=== PATIENT | female | born 1980 | race African-American/Black ===

== ENCOUNTER 2016-09-05 17:02 | Emergency (ER) | payer OTHER ==
[2016-09-05 17:08] VITALS: BP 126/55; PULSE 77; TEMP 98.6; BMI 31.6
--- NOTE | 2016-09-05 17:40 | PDOC ---
History of Present Illness - History of Present Illness Initial Comments: 09/05/16 17:40 The patient is a 36 year old female, with a past medical history miscarriage , who presents to the emergency department with progressive pain to her left hip s/p slipping on oil two days ago. She denies falling when she slipped , however, does reports a mechanical fall 1 month ago where she fell to her knees. She denies hip pain a month ago. She reports her left hip pain as a stabbing and burning to the lateral aspect with radiation anteriorly. She reports the pain has progressed in severity since the slip no fall on Thursday. She reports the pain is exacerbated with weightbearing and stretching. She states she has been walking with a limp secondary to pain. She reports icing the left hip and taking 600mg Motrin today with minimal relief of pain. She states she wears heels and wedges at work when meeting clients, but changes into sneakers when she can. She denies chest pain, shortness of breath, headache and dizziness. She denies fever, chills, nausea, vomit, diarrhea and constipation. She denies dysuria, frequency, urgency and hematuria. 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 <Domitila Justice - Last Filed: 09/05/16 17:42> - General History Source: Patient Exam Limitations: No Limitations - History of Present Illness Initial Comments: 09/05/16 17:39 <Bertha Johnson - Last Filed: 09/05/16 18:36> - General Chief Complaint: Pain Stated Complaint: HIP PAIN Time Seen by Provider: 09/05/16 17:19 Past History <Domitila Justice - Last Filed: 09/05/16 17:42> - Surgical History Abdominal Surgery: Yes (sleeve gastrectomy,tummy tuck) - Psycho/Social/Smoking Cessation Hx Suicidal Ideation: No Smoking History: Never smoked Information on smoking cessation initiated: No Hx Alcohol Use: No Drug/Substance Use Hx: No Substance Use Type: None <Bertha Johnson - Last Filed: 09/05/16 18:36> - Past Medical History Allergies/Adverse Reactions: Allergies Allergy/AdvReac Type Severity Reaction Status Date / Time No Known Allergies Allergy Verified 09/05/16 17:08 Home Medications: Ambulatory Orders Naproxen [Naprosyn -] 500 mg PO BID #30 tablet 09/05/16 Review of Systems - Review of Systems Able to Perform ROS?: Yes Comments:: 09/05/16 17:40 CONSTITUTIONAL: Absent: fever, no chills, no fatigue EYES: Absent: visual changes ENT: Absent: ear pain, no sore throat CARDIOVASCULAR: Absent: chest pain, no palpitations RESPIRATORY: Absent: cough, no SOB GI: Absent: abdominal pain, no nausea, no vomiting, no constipation, no diarrhea GENITOURINARY: Absent: dysuria, no frequency, no hematuria MUSCULOSKELETAL: (+) left hip pain. Absent: back pain, SKIN: Absent: rash NEURO: Absent: headache <Domitila Justice - Last Filed: 09/05/16 17:42> *Physical Exam - Vital Signs Last Vital Signs Temp Pulse Resp BP Pulse Ox 98.6 F 77 18 126/55 99 09/05/16 17:06 09/05/16 17:06 09/05/16 17:06 09/05/16 17:06 09/05/16 17:06 - Physical Exam Comments: 09/05/16 17:40 GENERAL: Well-appearing, well-nourished. No apparent distress. HEENT: Normocephalic, atraumatic. PERRL, EOM intact. CARDIOVASCULAR: Normal S1, S2. Regular rate and rhythm. PULMONARY: Clear to auscultation bilaterally. ABDOMEN: Soft, non-distended, non-tender. EXTREMITIES: (+) slightly antalgic gait. Normal ROM in all four extremities. No gross bony deformities. SKIN: Warm, dry. No rash. No ecchymosis. NEUROLOGICAL: No focal neurological deficits. <Domitila Justice - Last Filed: 09/05/16 17:42> - Vital Signs Last Vital Signs Temp Pulse Resp BP Pulse Ox 98.6 F 77 18 126/55 99 09/05/16 17:06 09/05/16 17:06 09/05/16 17:06 09/05/16 17:06 09/05/16 17:06 <Bertha Johnson - Last Filed: 09/05/16 18:36> *DC/Admit/Observation/Transfer - Attestations Scribe Attestion: 09/05/16 17:41 Documentation prepared by Domitila Justice, acting as chief medical director for Bertha Johnson NP <Domitila Justice - Last Filed: 09/05/16 17:42> - Discharge Dispostion Admit: No <Bertha Johnson - Last Filed: 09/05/16 18:36> Diagnosis at time of Disposition: Trochanteric bursitis of left hip - Discharge Dispostion Disposition: HOME Condition at time of disposition: Stable - Referrals Referrals: Josue Fallon MD [Primary Care Provider] - Anil Polanco MD [Staff Physician] - - Patient Instructions Printed Discharge Instructions: DI for Hip Bursitis Additional Instructions: Rest, ice to area on and off for 15 minutes 4-6 times a day Avoid heavy lifting or exercise until pain and swelling is resolved or until further directed Keep area highly elevated to reduce swelling Use splints/Edmar wrap as directed Followup with orthopedist in one to 2 days if not improving, if significantly improved may wait one week for followup with orthopedist May use Naprosyn 500 mg tablets mg tablets every 8 hours as needed for pain - Post Discharge Activity Work/School Note: Back to Work
[2016-09-05] MEDS ORDERED: KETOROLAC TROMETHAMINE 60 MG/2 ML VIAL IM ONE (18:00)
[2016-09-05] MEDS ORDERED: KETOROLAC TROMETHAMINE 60 MG/2 ML VIAL ONE (18:26)
== END 2016-09-05 18:46 | disposition home or self-care (01) ==
LOC: JERFT 17:02
PROC: 3E0233Z Introduction of Anti-inflammatory into Muscle, Percutaneous Approach (ICD-10-PCS; principal; 2016-09-05)
DX: M70.62 Trochanteric bursitis, left hip (principal); W01.0XXA Fall on same level from slipping, tripping and stumbling without subsequent striking against object, initial encounter; Y93.89 Activity, other specified; Y92.9 Unspecified place or not applicable
CPT/HCPCS: 84703; 96372; 99281-25

== ENCOUNTER 2017-12-04 21:44 | Emergency (ER) | payer BC, OTHER ==
[2017-12-04 21:49] VITALS: BP 130/89; PULSE 76; TEMP 98.8; BMI 31.4
[2017-12-04] MEDS ORDERED: IBUPROFEN 400 MG TABLET (FP) PO ONE ×2 (23:26→23:48)
[2017-12-04] MEDS ORDERED: DIPHTH,PERTUSS(ACELL),TET 0.5 ML DISP.SYRIN IM ONE (23:26)
--- NOTE | 2017-12-04 23:35 | PDOC ---
History of Present Illness - General Chief Complaint: Injury Stated Complaint: FINGER INJURY Time Seen by Provider: 12/04/17 23:02 - History of Present Illness Initial Comments: 12/04/17 23:26 CHIEF COMPLAINT: finger injury HISTORY OF PRESENT ILLNESS: 37 yo F with no significant PMH presents to ED with R fifth finger injury. Patient states she was at work today when she caught her finger "in a bar door" and it started bleeding. Since then she has been bleeding continuously and her finger is now bruised and swollen. She believes her last tetanus shot was in 2001. No recent travel or sick contacts. PAST MEDICAL HISTORY: Denies past medical history FAMILY HISTORY: Denies SOCIAL HISTORY:Denies tobacco, alcohol, illicit drug use. SURGICAL HISTORY: Denies ALLERGIES: No known drug allergies REVIEW OF SYSTEMS General/Constitutional: Denies fever or chills. Denies weakness, weight change. HEENT: Denies change in vision. Denies ear pain or discharge. Denies sore throat. Cardiovascular: Denies chest pain or shortness of breath. Respiratory: Denies cough, wheezing, or hemoptysis. Gastrointestinal: Denies nausea, vomiting, diarrhea or constipation. Denies rectal bleeding. Genitourinary: Denies dysuria, frequency, or change in urination. Musculoskeletal: Crush injury to R pinky finger. Denies joint or muscle swelling or pain. Denies neck or back pain. Skin and breasts: Denies rash or easy bruising. Neurologic: Denies headache, vertigo, loss of consciousness, or loss of sensation. PHYSICAL EXAM General Appearance: Well-appearing, appropriately dressed. No apparent distress. HEENT: EOMI, PERRLA, normal ENT inspection, normal voice, TMs normal, pharynx normal. No conjunctival pallor. No photophobia, scleral icterus. Neck: Supple. Trachea midline. No tenderness, rigidity, carotid bruit, stridor , lymphadenopathy, or thyromegaly. Respiratory/Chest: Lungs CTAB. No shortness of breath, chest tenderness, respiratory distress, accessory muscle use. No crackles, rales, rhonchi, stridor , wheezing, dullness Cardiovascular: RRR. S1, S2. No JVD, murmur, bradycardia, tachycardia. Vascular Pulses: Dorsalis-Pedis (R): 2+, Dorsalis-Pedis (L): 2+ Gastrointestinal/Abdominal: Normal bowel sounds. Abdomen soft, non-distended. No tenderness or rebound tenderness. No organomegaly, pulsatile mass, guarding , hernia, hepatomegaly, splenomegaly. Lymphatic: No adenopathy, tenderness. Musculoskeletal/Extremities: Ecchymosis and bleeding to distal R 5th finger with tenderness on palpation and pain elicited with active and passive ROM. Pelvis Stable. No CVA tenderness. No tenderness to extremities, pedal edema, swelling, erythema or deformity. Integumentary: Appropriate color, dry, warm. No cyanosis, erythema, jaundice or rash Neurologic: chief creative officer II-XII intact. Fully oriented, alert. Appropriate mood/affect. Motor strength 5/5. No appreciable EOM palsy, facial droop or sensory deficit. 12/05/17 00:14 Past History - Past Medical History Allergies/Adverse Reactions: Allergies Allergy/AdvReac Type Severity Reaction Status Date / Time No Known Allergies Allergy Verified 12/04/17 21:49 Home Medications: Ambulatory Orders Naproxen [Naprosyn -] 500 mg PO BID #30 tablet 09/05/16 COPD: No - Surgical History Abdominal Surgery: Yes (sleeve gastrectomy,tummy tuck) - Suicide/Smoking/Psychosocial Hx Smoking History: Never smoked Hx Alcohol Use: No Drug/Substance Use Hx: No Substance Use Type: None *Physical Exam - Vital Signs Last Vital Signs Temp Pulse Resp BP Pulse Ox 98.8 F 76 18 130/89 100 12/04/17 21:46 12/04/17 21:46 12/04/17 21:46 12/04/17 21:46 12/04/17 21:46 ED Treatment Course - RADIOLOGY Radiology Studies Ordered: Category Date Time Status FINGER(S) RIGHT [RAD] Stat Radiology 12/04/17 23:22 Ordered Medical Decision Making - Medical Decision Making 12/05/17 00:16 37 yo F with no significant PMH presents to ED with crush injury to R fifth finger. -x-ray -Pauly garcia 12/05/17 01:56 X-ray wet read with mildly displaced fracture to distal tip of 5th finger. Suspicious for subungal hematoma but unable to visualize due to patient's gel manicure. Nail trephination attempted using cautery, blood drained from under 5th finger. Finger splinted, will refer to hand surgery. *DC/Admit/Observation/Transfer Diagnosis at time of Disposition: Subungual hematoma of finger of right hand Fracture of distal phalanx of right little finger Qualifiers: Encounter type: initial encounter Fracture type: closed Fracture alignment: displaced Qualified Code(s): S62.636A - Displaced fracture of distal phalanx of right little finger, initial encounter for closed fracture - Discharge Dispostion Disposition: HOME Condition at time of disposition: Stable Decision to Admit order: No - Referrals Referrals: Josue Fallon MD [Primary Care Provider] - Lawrence Emery MD [Staff Physician] - - Patient Instructions Printed Discharge Instructions: DI for Finger Fracture, DI for Crush Injury, DI for Subungual Hematoma Additional Instructions: Please follow up with the hand surgeon next week as discussed. Take ibuprofen ( Motrin or Advil) for pain control and swelling. You may ice the finger to reduce swelling as well. If you develop any new or worsening symptoms, please return to the ER. - Post Discharge Activity Forms/Work/School Notes: Back to Work
== END 2017-12-05 02:36 | disposition home or self-care (01) ==
LOC: JER 21:44 → JERFT 21:44 → JER 12-05 02:36
PROC: 0H9QXZZ Drainage of Finger Nail, External Approach (ICD-10-PCS; principal; 2017-12-04)
PROC: 3E0234Z Introduction of Serum, Toxoid and Vaccine into Muscle, Percutaneous Approach (ICD-10-PCS; 2017-12-04)
PROC: 2W3JX1Z Immobilization of Right Finger using Splint (ICD-10-PCS; 2017-12-04)
DX: S62.636A Displaced fracture of distal phalanx of right little finger, initial encounter for closed fracture (principal); S67.196A Crushing injury of right little finger, initial encounter; S60.151A Contusion of right little finger with damage to nail, initial encounter; W23.0XXA Caught, crushed, jammed, or pinched between moving objects, initial encounter; Y93.89 Activity, other specified; Y92.69 Other specified industrial and construction area as the place of occurrence of the external cause; Y99.0 Civilian activity done for income or pay
CPT/HCPCS: 73140-TC-RT-FY; 90715; 99281-25